=== PATIENT | female | born 1975 | race African-American/Black ===

== ENCOUNTER 2017-12-16 07:54 | Emergency (ER) | payer SELFPAY ==
[2017-12-16 08:42] LABS: Urine Blood 2+ (NEG); Urine Glucose NEGATIVE (NEG); Urine Protein 2+ (NEG)
[2017-12-16] MEDS ORDERED: ONDANSETRON 4 MG (ODT) TAB ONE (08:44)
[2017-12-16 08:53] LABS: Urine Bacteria >50 /HPF (<20); Urine RBC >50 /HPF (NONE SEEN)
[2017-12-16 08:54] LABS: Urine Culture Reflex Order REFLEXED
--- NOTE | 2017-12-16 09:18 | RAD REPORT ---
EXAM DESCRIPTION: RAD - Chest Pa And Lat (2 Views) - 12/16/2017 8:28 am CLINICAL HISTORY: Fever, productive cough COMPARISON: December 2014 TECHNIQUE: PA and lateral views of the chest were obtained. FINDINGS: The lungs are clear of a consolidation, mass or failure finding. Lower left lung field mar kings are fractionally increased over the comparison. This is relatively subtle but could be a very m inimal left lung base interstitial pneumonia. Heart size is normal and central vasculature is withi n normal limits. No pleural effusion or pneumothorax seen. No acute bony finding noted. No aortic abnormality. IMPRESSION: Questionable mild or early left lung base interstitial pneumonia.
--- NOTE | 2017-12-16 09:25 | EDPHYS ---
Physician Documentation [facility] Name: Kourtney Leblanc Age: 42 yrs Sex: Female : 1975 Arrival Date: 12/16/2017 Time: 07:56 Bed 17 Private MD: Karri Champagne ED Physician Kin Smalls HPI: 12/16 08:24 This 42 yrs old Black Female presents to ER via Ambulatory with complaints of Fever, gs Nausea, Abdominal Pain. 08:24 The patient reports fever, that was measured at 102 degrees Fahrenheit. Onset: The gs symptoms/episode began/occurred 2 day(s) ago. Modifying factors: Interventions used to treat fever include home remedies, did not take antipyretics today. Associated signs and symptoms: Pertinent positives: nausea. Severity of symptoms: At their worst the symptoms were moderate in the emergency department the symptoms are unchanged. The patient has experienced similar episodes in the past, a few times. The patient has not recently seen a physician. 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 - Social history:: The patient lives with spouse, Smoking status: Patient/guardian denies using tobacco. - Ebola Screening: : Patient negative for fever greater than or equal to 101.5 degrees Fahrenheit, and additional compatible Ebola Virus Disease symptoms. ROS: 08:24 ENT: Negative for sore throat. gs 08:24 Respiratory: Positive for cough. 08:24 : Positive for urinary symptoms. 08:24 All other systems are negative. Exam: 08:24 Head/Face: Normocephalic, atraumatic. Eyes: Pupils equal round and reactive to light, gs extra-ocular motions intact. Lids and lashes normal. Conjunctiva and sclera are non-icteric and not injected. Cornea within normal limits. Periorbital areas with no swelling, redness, or edema. ENT: Nares patent. No nasal discharge, no septal abnormalities noted. Tympanic membranes are normal and external auditory canals are clear. Oropharynx with no redness, swelling, or masses, exudates, or evidence of obstruction, uvula midline. Mucous membranes moist. Neck: Trachea midline, no thyromegaly or masses palpated, and no cervical lymphadenopathy. Supple, full range of motion without nuchal rigidity, or vertebral point tenderness. No Meningismus. Chest/axilla: Normal chest wall appearance and motion. Nontender with no deformity. No lesions are appreciated. Cardiovascular: Regular rate and rhythm with a normal S1 and S2. No gallops, murmurs, or rubs. Normal PMI, no JVD. No pulse deficits. Respiratory: Lungs have equal breath sounds bilaterally, clear to auscultation and percussion. No rales, rhonchi or wheezes noted. No increased work of breathing, no retractions or nasal flaring. Abdomen/GI: Soft, non-tender, with normal bowel sounds. No distension or tympany. No guarding or rebound. No evidence of tenderness throughout. Back: No spinal tenderness. No costovertebral tenderness. Full range of motion. Skin: Warm, dry with normal turgor. Normal color with no rashes, no lesions, and no evidence of cellulitis. MS/ Extremity: Pulses equal, no cyanosis. Neurovascular intact. Full, normal range of motion. Neuro: Awake and alert, GCS 15, oriented to person, place, time, and situation. Cranial nerves II-XII grossly intact. Motor strength 5/5 in all extremities. Sensory grossly intact. Cerebellar exam normal. Normal gait. 08:24 Constitutional: The patient appears alert, awake. Vital Signs: 08:02 BP 128 / 79; Pulse 96; Resp 20; Temp 98.6(TE); Pulse Ox 96% on R/A; Weight 94.8 kg; rb1 Height 5 ft. 3 in. (160.02 cm) (R); Pain 6/10; 09:00 BP 114 / 81; Pulse 87; Resp 17; Pulse Ox 96% on R/A; rb1 09:53 BP 121 / 80; Pulse 84; Resp 18; Pulse Ox 97% on R/A; rb1 08:02 Body Mass Index 37.02 (94.80 kg, 160.02 cm) rb1 MDM: 08:14 Patient medically screened. 08:24 Differential diagnosis: bacterial infection, pneumonia UTI. Data reviewed: vital signs, nurses notes. Response to treatment: the patient's symptoms have markedly improved after treatment, and as a result, I will discharge patient. 12/16 08:15 Order name: Urine Microscopic Only; Complete Time: 09:20 12/16 08:15 Order name: Flu; Complete Time: 09:20 12/16 08:15 Order name: XRAY Chest Pa And Lat (2 Views); Complete Time: 09:20 12/16 08:22 Order name: Urine Dipstick--Ancillary (enter results); Complete Time: 09:20 12/16 08:22 Order name: Urine --Ancillary (enter results); Complete Time: 09:20 12/16 08:56 Order name: Urine Culture EDMD Administered Medications: 08:40 Drug: Zofran 4 mg Route: PO; rb1 09:00 Follow up: Response: No adverse reaction; Nausea is decreased rb1 09:35 Drug: Rocephin (cefTRIAXone) 1 grams Route: IM; Site: right gluteus; rb1 09:50 Follow up: Response: No adverse reaction rb1 Disposition: 12/16/17 09:24 Discharged to Home. Impression: Fever presenting with conditions classified elsewhere, Urinary tract infection, site not specified. - Condition is Stable. - Discharge Instructions: Urinary Tract Infection, Adult, [id number]. - Prescriptions for Levaquin 750 mg Oral Tablet - take 1 tablet by ORAL route once daily for 5 days; 5 tablet. - Medication Reconciliation Form, Thank You Letter, Antibiotic Education, Prescription Opioid Use form. - Follow up: Private Physician; When: 2 - 3 days; Reason: Re-evaluation by your physician. Signatures: Dispatcher [employer] EDMD Amrita Huerta, RN RN rb1 Kin Smalls MD MD Corrections: (The following items were deleted from the chart) 09:53 09:24 12/16/2017 09:24 Discharged to Home. Impression: Fever presenting with conditions rb1 classified elsewhere; Urinary tract infection, site not specified. Condition is Stable. Forms are Medication Reconciliation Form, Thank You Letter, Antibiotic Education, Prescription Opioid Use. Follow up: Private Physician; When: 2 - 3 days; Reason: Re-evaluation by your physician.
--- NOTE | 2017-12-16 09:25 | ER ---
Nurse's Notes [facility] Name: Kourtney Leblanc Age: 42 yrs Sex: Female : 1975 Arrival Date: 12/16/2017 Time: 07:56 Bed 17 Private MD: Karri Champagne Diagnosis: Fever presenting with conditions classified elsewhere;Urinary tract infection, site not specified Presentation: 12/16 08:02 Presenting complaint: Patient states: Has been running fever for a couple days. She has rb1 a cough with yellow sputum. C/o suprapubic pain. Transition of care: patient was not received from another setting of care. Onset of symptoms was December 14, 2017. Risk Assessment: Do you want to hurt yourself or someone else? Patient reports no desire to harm self or others. Initial Sepsis Screen: Does the patient meet any 2 criteria? No. Patient's initial sepsis screen is negative. Does the patient have a suspected source of infection? No. Patient's initial sepsis screen is negative. Care prior to arrival: None. 08:02 Method Of Arrival: Ambulatory rb1 08:02 Acuity: RANDY 3 rb1 Triage Assessment: 08:02 General: Appears in no apparent distress. comfortable, Behavior is calm, cooperative. rb1 Pain: Complains of pain in suprapubic area. 08:02 General: Reports fever for 2-3 days. Pain: Pain currently is 6 out of 10 on a pain rb1 scale. EENT: Reports nasal congestion. Neuro: Level of Consciousness is awake, alert, obeys commands, Oriented to person, place, time, situation. Cardiovascular: Capillary refill < 3 seconds is brisk in bilateral fingers. Respiratory: Airway is patent Respiratory effort is even, unlabored, Respiratory pattern is regular, symmetrical. GI: Reports nausea, Patient currently denies diarrhea, vomiting. : Denies pain with urination. Derm: Skin is dry, Skin is normal, Skin temperature is warm. 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 - Social history:: The patient lives with spouse, Smoking status: Patient/guardian denies using tobacco. - Ebola Screening: : Patient negative for fever greater than or equal to 101.5 degrees Fahrenheit, and additional compatible Ebola Virus Disease symptoms. Screenin:02 Abuse screen: Denies threats or abuse. Nutritional screening: No deficits noted. rb1 Tuberculosis screening: No symptoms or risk factors identified. Fall Risk None identified. Assessment: 08:02 General: See triage assessment. rb1 09:00 Reassessment: Patient appears in no apparent distress at this time. Patient and/or rb1 family updated on plan of care and expected duration. Pain level reassessed. Patient is alert, oriented x 3, equal unlabored respirations, skin warm/dry/pink. 09:35 Reassessment: Discharge pending due to shot time for Rocephin. rb1 Vital Signs: 08:02 BP 128 / 79; Pulse 96; Resp 20; Temp 98.6(TE); Pulse Ox 96% on R/A; Weight 94.8 kg; rb1 Height 5 ft. 3 in. (160.02 cm) (R); Pain 6/10; 09:00 BP 114 / 81; Pulse 87; Resp 17; Pulse Ox 96% on R/A; rb1 09:53 BP 121 / 80; Pulse 84; Resp 18; Pulse Ox 97% on R/A; rb1 08:02 Body Mass Index 37.02 (94.80 kg, 160.02 cm) rb1 ED Course: 07:56 Patient arrived in ED. sb2 07:57 Karri Champagne MD is Private Physician. sb2 08:02 Arm band placed on right wrist. rb1 08:02 Patient has correct armband on for positive identification. Placed in gown. Bed in low rb1 position. Call light in reach. Side rails up X 1. Pulse ox on. NIBP on. 08:05 Amrita Huerta, ANAND is Primary Nurse. rb1 08:05 Kin Smalls MD is Attending Physician. gs 08:08 Triage completed. rb1 08:15 Urine collected: clean catch specimen, cloudy. dh3 08:20 Flu and/or RSV swab sent to lab. dh3 08:25 X-ray completed. Patient tolerated procedure well. Patient moved to radiology via jb2 wheelchair. Patient moved back from radiology. 08:27 XRAY Chest Pa And Lat (2 Views) In Process Unspecified. EDMS 09:53 No provider procedures requiring assistance completed. Patient did not have IV access rb1 during this emergency room visit. Administered Medications: 08:40 Drug: Zofran 4 mg Route: PO; rb1 09:00 Follow up: Response: No adverse reaction; Nausea is decreased rb1 09:35 Drug: Rocephin (cefTRIAXone) 1 grams Route: IM; Site: right gluteus; rb1 09:50 Follow up: Response: No adverse reaction rb1 Outcome: 09:24 Discharge ordered by . 09:53 Patient left the ED. rb1 09:53 Discharged to home ambulatory, with family. rb1 09:53 Condition: stable 09:53 Discharge instructions given to patient, Instructed on discharge instructions, follow up and referral plans. medication usage, Demonstrated understanding of instructions, follow-up care, medications, Prescriptions given X 1. Addendum: 12/19/2017 10:36 Addendum: Culture Results: Positive urine culture. No further action required. Bacteria i w sensitive to prescribed antibiotic. Signatures: Dispatcher [employer] EDMS Alejandro Ulloa jb2 Sena Hale RN RN iw Amrita Huerta RN RN rb1 Suzanne Cullen 3 Kin Smalls MD MD Scarlet Barnhart sb2 Corrections: (The following items were deleted from the chart) 12/16 09:38 08:02 GI: Patient currently denies diarrhea, nausea, vomiting, rb1 rb1
[2017-12-16] MEDS ORDERED: CEFTRIAXONE 1000 MG/VIAL ONE (09:34)
== END 2017-12-16 09:53 | disposition home or self-care (01) ==
LOC: ER 07:54
DX: N39.0 Urinary tract infection, site not specified (principal); E11.9 Type 2 diabetes mellitus without complications
CPT/HCPCS: 71046; 81003; 81015; 81025; 87077; 87086; 87088; 87186; 87804; 96372; 99284

== ENCOUNTER 2018-02-27 10:57 | Emergency (ER) | payer BC, SELFPAY ==
[2018-02-27] MEDS ORDERED: NA CHLORIDE 0.9% 500 ML ONE (11:30)
[2018-02-27] MEDS ORDERED: ONDANSETRON 4 MG/2 ML VIAL ONE (11:30)
[2018-02-27] MEDS ORDERED: MECLIZINE HCL 12.5 MG TAB ONE (11:30)
--- NOTE | 2018-02-27 11:55 | RAD REPORT ---
EXAM DESCRIPTION: CT - Head Brain Wo Cont - 02/27/2018 11:45 am CLINICAL HISTORY: Dizziness, weakness COMPARISON: None. TECHNIQUE: Axial 5 mm thick images of the head were obtained without IV contrast. All CT scans are performed using dose optimization technique as appropriate and may include automated exposure control or mA/KV adjustment according to patient size. FINDINGS: No intracranial hemorrhage, mass, edema or shift of mid-line structures. No acute infarcti on changes seen. No abnormal extra-axial fluid collections. Ventricles are normal. Physiologic calcif ications are present. Normal variant hyperostosis along the inner table of the frontal bone. Mastoid air cells and visualized portions of the paranasal sinuses are clear. No acute bony findings. IMPRESSION: Negative non-contrast CT head examination.
--- NOTE | 2018-02-27 11:56 | RAD REPORT ---
EXAM DESCRIPTION: RAD - Chest Single View - 02/27/2018 11:50 am CLINICAL HISTORY: Shortness of breath COMPARISON: December 16 TECHNIQUE: AP portable chest image was obtained 1138 hours . FINDINGS: No acute lung parenchymal process. Opacification at the left-side heart base is believed b e fat-pad and normal overlapping parenchyma. Heart and vasculature are normal. No measurable pleural effusion and no pneumothorax. No acute bony abnormality seen. No acute aortic findings suspected. IMPRESSION: No acute cardiopulmonary process. No significant change from comparison.
[2018-02-27 11:58] LABS: Urine Blood 2+ (NEG); Urine Glucose NEGATIVE (NEG); Urine Protein TRACE (NEG); Urine pH 6.5 (5.0-7.0)
[2018-02-27 12:01] LABS: Absolute Lymphocytes (CBC) 3.1 K/uL (0.7-4.9); Absolute Monocytes 0.8 K/uL (0.1-1.3); Absolute Neutrophil 5.6 K/uL (1.8-8.0); Basophils % 0.7 % (0-1.3); Eosinophils % 2.1 % (0-4.4); Hematocrit 35.4 % (36.0-45.0); Lymphocytes % 31.8 % (15.3-44.8); MCH 24.8 pg (27.0-35.0); MCV 77.1 fL (80-100); MPV 8.9 fL (7.6-11.3); Monocytes % 7.8 % (3.3-12.3); Protime INR 1.13; RBC Red Blood Cell Count 4.59 M/uL (3.86-4.86)
[2018-02-27 12:10] LABS: ALT/SGPT 29 U/L (12-78); AST/SGOT 9 U/L (15-37); Albumin 3.2 g/dL (3.4-5.0); Alkaline Phosphatase 115 U/L (45-117); BUN Blood Urea Nitrogen 14 mg/dL (7-18); Bicarbonate 29 mmol/L (21-32); Bilirubin Direct < 0.1 mg/dL (0-0.2); Bilirubin Total 0.2 mg/dL (0.2-1.0); Glucose Level 133 mg/dL (74-106); Magnesium 2.1 mg/dL (1.8-2.4); NT PRO-BNP 58 pg/mL (<125); Potassium 4.1 mmol/L (3.5-5.1); Protein, Total 8.2 g/dL (6.4-8.2); Sodium Level 140 mmol/L (136-145); Troponin (Emerg Dept Use Only) < 0.02 ng/mL (0.0-0.045)
[2018-02-27 12:21] LABS: Urine RBC 20-50 /HPF (NONE SEEN)
[2018-02-27 12:22] LABS: Urine Bacteria LOADED /HPF (<20)
[2018-02-27 12:23] LABS: Urine Culture Reflex Order NOT NEEDED
--- NOTE | 2018-02-27 14:02 | EDPHYS ---
Physician Documentation [facility] Name: Kourtney Leblanc Age: 42 yrs Sex: Female : 1975 Arrival Date: 02/27/2018 Time: 10:58 Bed 2 Private MD: Karri Champagne ED Physician Kin Smalls HPI: 02/27 11:24 This 42 yrs old Black Female presents to ER via Ambulatory with complaints of Dizziness.jmm 11:24 The patient presents with sense of spinning. Onset: The symptoms/episode began/occurred jmm acutely, 2 day(s) ago. Associated signs and symptoms: Pertinent positives: Pertinent negatives: ataxia, blurred vision, confusion, focal weakness. This is a 42 year old female with a history of DM that presents to the ED with dizziness beginning this past Wednesday upon awakening. Patient described the dizziness with the sensation of the room spinning. Patient states last week she had a flu like illness. Patient denies focal weakness. . Historical: - Allergies: 11:01 No Known Allergies; sv - PMHx: 11: Depression; Diabetes - NIDDM; sv - PSHx: 11:01 ; right ovarian cyst; Fibroids removed from uterus; sv - Immunization history:: Flu vaccine is not up to date. - Social history:: Smoking status: Patient/guardian denies using tobacco. - Ebola Screening: : No symptoms or risks identified at this time. ROS: 11:24 Constitutional: Negative for fever, chills, and weight loss, Cardiovascular: Negative jm for chest pain, palpitations, and edema, Respiratory: Negative for shortness of breath, cough, wheezing, and pleuritic chest pain, Abdomen/GI: Negative for abdominal pain, nausea, vomiting, diarrhea, and constipation. 11:24 Neuro: Positive for dizziness. 11:24 All other systems are negative. Exam: 11:24 Head/Face: atraumatic. jmm 11:24 ENT: Moist Mucus Membranes Neck: Trachea midline, Supple Chest/axilla: Normal chest wall appearance and motion. Cardiovascular: Regular rate and rhythm. No edema appreciated Respiratory: Normal respirations, no respiratory distress appreciated Abdomen/GI: Non distended, soft Back: Normal ROM 11:24 Constitutional: The patient appears in no acute distress, alert, awake. 11:24 Eyes: Nystagmus: gaze to the right. 11:24 Neuro: Orientation: is normal, Mentation: is normal, Memory: is normal, Cerebellar function: Romberg testing normal finger to nose testing, heel to de luna testing is normal, Motor: is normal. 11:24 Psych: Behavior/mood is pleasant, cooperative. Vital Signs: 11:01 BP 110 / 75; Pulse 69; Resp 16; Temp 97.1; Pulse Ox 99% ; Weight 94.8 kg; Height 5 ft. sv 3 in. (160.02 cm); Pain 5/10; 13:55 BP 127 / 74; Pulse 71; Resp 16; Temp 98.1; Pulse Ox 98% on R/A; la1 11:01 Body Mass Index 37.02 (94.80 kg, 160.02 cm) sv MDM: 11:13 Patient medically screened. [facility] 14:00 Data reviewed: vital signs, nurses notes, lab test result(s), radiologic studies, CT [facility] scan. Counseling: I had a detailed discussion with the patient and/or guardian regarding: the historical points, exam findings, and any diagnostic results supporting the discharge/admit diagnosis, lab results, radiology results, the need for outpatient follow up, to return to the emergency department if symptoms worsen or persist or if there are any questions or concerns that arise at home. 14:00 ED course: Patient has terminating horizontal nystagmus. Cerebellar exam is normal. [facility] Patient is able to ambulate without difficulty in the ED. CT negative. Symptoms appear most likely peripheral. Patient states having decreased dizziness. . 14:00 ED course: Patient's complaints of lower abdominal pain has been chronic for months. UA [facility] shows signs of UTI. No leukocytosis. Lower abdominal exam localizes to the suprapubic region. I do not currently suspect appendicitis. Patient given early appendicitis return precautions. Patient understood and agrees with the plan of care. . 02/27 11:19 Order name: Basic Metabolic Panel; Complete Time: 12:22 [facility] 02/27 11:19 Order name: CBC with Diff; Complete Time: 12:08 [facility] 02/27 11:19 Order name: LFT's; Complete Time: 12:22 [facility] 02/27 11:19 Order name: Magnesium; Complete Time: 12:22 [facility] 02/27 11:19 Order name: NT PRO-BNP; Complete Time: 12:22 [facility] 02/27 11:19 Order name: PT-INR; Complete Time: 12:08 [facility] 02/27 11:19 Order name: Troponin (emerg Dept Use Only); Complete Time: 12:22 [facility] 02/27 11:19 Order name: XRAY Chest (1 view); Complete Time: 12:01 [facility] 02/27 11:20 Order name: CT Head Brain wo Cont; Complete Time: 12:01 [facility] 02/27 11:41 Order name: Urine Culture [facility] 02/27 11:41 Order name: Urine Microscopic Only; Complete Time: 12:26 [facility] 02/27 11:43 Order name: Urine Dipstick--Ancillary (enter results); Complete Time: 12: 02/27 11:43 Order name: Urine --Ancillary (enter results); Complete Time: 12: 02/27 11:19 Order name: EKG; Complete Time: 11:20 [facility] 02/27 11:19 Order name: Cardiac monitoring; Complete Time: 11:34 [facility] 02/27 11:19 Order name: EKG - Nurse/Tech; Complete Time: 11:34 [facility] 02/27 11:19 Order name: IV Saline Lock; Complete Time: 11:34 [facility] 02/27 11:19 Order name: Labs collected and sent; Complete Time: 11:34 [facility] 02/27 11:19 Order name: O2 Per Protocol; Complete Time: 11:34 [facility] 02/27 11:19 Order name: O2 Sat Monitoring; Complete Time: 11:34 [facility] Administered Medications: 11:34 Drug: Meclizine 50 mg Route: PO; la1 12:47 Follow up: Response: No adverse reaction la1 11:34 Drug: Zofran 4 mg Route: IVP; Site: right antecubital; la1 12:47 Follow up: Response: No adverse reaction la1 11:34 Drug: NS 0.9% 500 ml Route: IV; Rate: bolus; Site: right antecubital; la1 12:47 Follow up: IV Status: Completed infusion la1 Disposition: 02/27/18 14:02 Discharged to Home. Impression: Vertigo. - Condition is Stable. - Discharge Instructions: Urinary Tract Infection, Adult, Vertigo. - Prescriptions for Cephalexin 500 mg Oral Capsule - take 1 capsule by ORAL route every 12 hours for 10 days; 20 capsule. Valium 2 mg Oral Tablet - take 1 tablet by ORAL route every 8 hours As needed; 20 tablet. - Medication Reconciliation Form, Thank You Letter, Antibiotic Education, Prescription Opioid Use form. - Follow up: Karri Champagne MD; When: 2 - 3 days; Reason: Recheck today's complaints, Continuance of care, Re-evaluation by your physician. Follow up: Magali Timmons MD; When: 2 - 3 days; Reason: Recheck today's complaints, Continuance of care, Re-evaluation by your physician. Follow up: Ann uCllen MD; When: 2 - 3 days; Reason: Recheck today's complaints, Continuance of care, Re-evaluation by your physician. Addendum: 03/07/2018 11:44 Co-signature as Attending Physician, Kin Smalls MD. g s Signatures: Dispatcher [employer] EDMS Ann Blount RN RN sv Mickail, Joel, PA PA jm Edson Pena RN RN la1 Starr, Gregory, MD MD Corrections: (The following items were deleted from the chart) 02/27 14:17 14:02 02/27/2018 14:02 Discharged to Home. Impression: Vertigo. Condition is Stable. la1 Forms are Medication Reconciliation Form, Thank You Letter, Antibiotic Education, Prescription Opioid Use. Follow up: Karri Champagne; When: 2 - 3 days; Reason: Recheck today's complaints, Continuance of care, Re-evaluation by your physician. Follow up: Magali Timmons; When: 2 - 3 days; Reason: Recheck today's complaints, Continuance of care, Re-evaluation by your physician. Follow up: Ann Cullen; When: 2 - 3 days; Reason: Recheck today's complaints, Continuance of care, Re-evaluation by your physician. juan luis
--- NOTE | 2018-02-27 14:02 | ER ---
Nurse's Notes [facility] Name: Kourtney Leblanc Age: 42 yrs Sex: Female : 1975 Arrival Date: 02/27/2018 Time: 10:58 Bed 2 Private MD: Karri Champagne Diagnosis: Vertigo Presentation: 02/27 11:00 Presenting complaint: Patient states: dizziness x 3 days. Pt reports she had her sv menstrual cycle twice this month and has had some RLQ pain intermittently. Transition of care: patient was not received from another setting of care. Onset of symptoms was February 24, 2018. Care prior to arrival: None. 11:00 Method Of Arrival: Ambulatory sv 11:00 Acuity: RANDY 3 sv 12:46 Risk Assessment: Do you want to hurt yourself or someone else? Patient reports no la1 desire to harm self or others. Initial Sepsis Screen: Does the patient meet any 2 criteria? No. Patient's initial sepsis screen is negative. Does the patient have a suspected source of infection? No. Patient's initial sepsis screen is negative. Triage Assessment: 11:02 General: Appears in no apparent distress. uncomfortable, Behavior is calm, cooperative, sv appropriate for age. Pain: Complains of pain in right lower quadrant Pain currently is 5 out of 10 on a pain scale. Neuro: Level of Consciousness is awake, alert, obeys commands, Oriented to person, place, time, situation, Moves all extremities. Full function Gait is steady, Speech is normal, Reports dizziness. Respiratory: Respiratory effort is even, unlabored, Respiratory pattern is regular, symmetrical. Historical: - Allergies: 11:01 No Known Allergies; sv - PMHx: 11:01 Depression; Diabetes - NIDDM; sv - PSHx: 11:01 ; right ovarian cyst; Fibroids removed from uterus; sv - Immunization history:: Flu vaccine is not up to date. - Social history:: Smoking status: Patient/guardian denies using tobacco. - Ebola Screening: : No symptoms or risks identified at this time. Screenin:34 Abuse screen: Denies threats or abuse. Nutritional screening: No deficits noted. la1 Tuberculosis screening: No symptoms or risk factors identified. Fall Risk None identified. Assessment: 11:33 General: Appears in no apparent distress. Behavior is calm, cooperative. Pain: la1 Complains of pain in right lower quadrant. Neuro: Level of Consciousness is awake, alert, obeys commands, Oriented to person, place, time, situation, Moves all extremities. Full function Gait is steady, Speech is normal, Facial symmetry appears normal, Pupils are PERRLA. Cardiovascular: Capillary refill < 3 seconds Patient's skin is warm and dry. Respiratory: Airway is patent Respiratory effort is even, unlabored, Respiratory pattern is regular, symmetrical, Breath sounds are clear bilaterally. GI: Patient currently denies diarrhea, nausea, vomiting. : No signs and/or symptoms were reported regarding the genitourinary system. 12:46 Reassessment: Patient appears in no apparent distress at this time. No changes from la1 previously documented assessment. Patient and/or family updated on plan of care and expected duration. Pain level reassessed. 13:45 Reassessment: Patient appears in no apparent distress at this time. No changes from la1 previously documented assessment. Patient and/or family updated on plan of care and expected duration. Pain level reassessed. Patient is alert, oriented x 3, equal unlabored respirations, skin warm/dry/pink. Vital Signs: 11:01 BP 110 / 75; Pulse 69; Resp 16; Temp 97.1; Pulse Ox 99% ; Weight 94.8 kg; Height 5 ft. sv 3 in. (160.02 cm); Pain 5/10; 13:55 BP 127 / 74; Pulse 71; Resp 16; Temp 98.1; Pulse Ox 98% on R/A; la1 11:01 Body Mass Index 37.02 (94.80 kg, 160.02 cm) sv ED Course: 10:58 Patient arrived in ED. mr 10:58 Karri Champagne MD is Private Physician. mr 11:00 Triage completed. sv 11:02 Arm band placed on. sv 11:05 Enrike Hurt, ANAND is Primary Nurse. bp 11:07 Catracho Estrada PA is PHCP. jm 11:07 Kin Smalls MD is Attending Physician. [facility] 11:34 Call light in reach. Side rails up X 1. la1 11:34 No provider procedures requiring assistance completed. Inserted saline lock: 22 gauge la1 in right antecubital area, using aseptic technique. Blood collected. 11:43 CT completed. Patient moved to CT via wheelchair. Patient moved back from CT. cw1 11:45 CT Head Brain wo Cont In Process Unspecified. EDMS 11:50 XRAY Chest (1 view) In Process Unspecified. EDMS 11:50 X-ray completed. Patient tolerated procedure well. Patient moved back from radiology. ag1 14:01 Karri Champagne MD is Referral Physician. jm 14:01 Magali Timmons MD is Referral Physician. jm 14:01 Ann Cullen MD is Referral Physician. jmm 14:16 IV discontinued, intact, bleeding controlled, No redness/swelling at site. Pressure la1 dressing applied. Administered Medications: 11:34 Drug: Meclizine 50 mg Route: PO; la1 12:47 Follow up: Response: No adverse reaction la1 11:34 Drug: Zofran 4 mg Route: IVP; Site: right antecubital; la1 12:47 Follow up: Response: No adverse reaction la1 11:34 Drug: NS 0.9% 500 ml Route: IV; Rate: bolus; Site: right antecubital; la1 12:47 Follow up: IV Status: Completed infusion la1 Outcome: 14:02 Discharge ordered by MD. jmm 14:16 Discharged to home ambulatory. la1 14:16 Condition: stable 14:16 Discharge instructions given to patient, Instructed on discharge instructions, follow up and referral plans. medication usage, Demonstrated understanding of instructions, follow-up care, medications, Prescriptions given X 2. 14:17 Patient left the ED. la1 Addendum: 03/03/2018 07:55 Addendum: Culture Results: Positive urine culture. No further action required. Bacteria i w sensitive to prescribed antibiotic. Signatures: Dispatcher [employer] EDMS Ann Blount, RN Catracho Cristina PA PA Phyllis Bernstein mr Sena Hale, RN Silvia Reynolds [facility] Edson Pena RN RN la1 [place], Ashley [facility] Enrike Hurt RN RN bp Corrections: (The following items were deleted from the chart) 02/27 11:01 11:00 Presenting complaint: Patient states: dizziness x 3 days. sv sv
--- NOTE | 2018-02-28 07:04 | EKG ---
Test Date: 2018-02-27 Test Time: 11:13:38 Employment Representative: KAILEY MEASUREMENT RESULTS: Intervals: Rate: 64 LA: 150 QRSD: 80 QT: 416 QTc: 429 [place]: P: 43 LA: 150 QRS: 20 T: 25 INTERPRETIVE STATEMENTS: Normal sinus rhythm Normal ECG Compared to ECG 12/06/2014 13:21:22 Sinus bradycardia no longer present Sinus arrhythmia no longer present Electronically Signed On 02-28-18 07:04:13 CDT by Rito Jones
== END 2018-02-27 14:17 | disposition home or self-care (01) ==
LOC: ER 10:57
DX: R42 Dizziness and giddiness (principal); N39.0 Urinary tract infection, site not specified
CPT/HCPCS: 36415; 70450; 71045; 80048; 80076; 81003; 81015; 81025; 83735; 83880; 84484; 85025; 85610; 87077; 87086; 87088; 87186; 93005; 96361; 96374; 99284; J2405

== ENCOUNTER → 2023-07-14 | Emergency (ER) | payer BC, SELFPAY ==
[~2023-07-14] MED LIST: MAGNESIUM SULFATE 1 gm IVPB 1 GM/100 ML BAG IV ONE; MECLIZINE HCL 12.5 MG TAB ONE; NA CHLORIDE 0.9% 500 ML ONE
--- OUTSIDE RECORDS SUMMARY | 2023-07-14 16:12 | XMS REPORT | Continuity of Care Document ---
Author Name Unknown Address [address] [facility] [address] [place] [address] [facility] thconnect Address [address] [facility] 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 Role Phone Wesley STACK, Brittany Ramachandran Primary Care Physician [phone] MARTINA LADD Attending Clinician Unavailable [place] Attending Clinician Unavailsarika dozier [email or web address]_S Attending Clinician UnavailANA Sigala Attending Clinician UnavailBrittany Melendrez MD Attending Clinician + [phone] Ana Garcia MD Attending Clinician + [phone] Doctor Unassigned, [place] Attending Clinician U navailable Lab, Ang - Db Attending Clinician Unavailable BRITTANY DAVIS Attending Clinician UnavailIVAN Burleson Attending Clinician Unavail able JERRICA GARCIA Attending Clinician Unavailable 2, [facility] Attending Clinician Unavailable Michelle Zavala Attending Clinician [phone] MICHELLE PICHARDO Attending Clinician UnavailZac Barrera Attending Clinician [phone] Jerirca Garcia MD Attending Clinician [phone] ZAC MOON Attending Clinician [facility]ika [facility] Clinicia n KAYLEE VIDALES Attending Clinician Unavailable SHARONDA BARAJAS Attending Clinician Unavailable Provider, [facility] Attending Clinician Un available Sharonda Mariscal Attending Clinician [phone] Pob, [facility] Main Attending Clinician Jennifer dozier Lab Adc Fam Pob I Attending Clinician UnavailLuciana Marques Attending Clinician [phone] Francisco Javier Gonzalez MD Attending Clinician +- [phone] FRANCISCO JAVIER GONZALEZ Attending Clinician MARTINA Stovall Admitting Clinician Unavailable [place] Admitting Clinician Unavailsarika dozier [email or web address]_S Admitting Clinician Unavaila ble Payers Payer Name Policy Type Policy Number Effective Date Expirati on Date Source HIM [facility] BLUE ADVANTAGE O [id number] 2020 00:00:00 [employer] [id number] 2020 00:00:00 Problems Condition Name Condition Details Condition Category Status Onset Date Resolution Date Last Treatment Date Treating Clinician Comments Source Mixed hyperlipid emia Mixed hyperlipid emia Disease Active 2020-05 00:00: 00 [facility] Menorrhagi a with irregular cycle Menorrhagi a with irregular cycle Disease Active 09-19 00:00: 00 [facility] Intramural , submucous, and subserous leiomyoma of uterus Intramural , submucous, and subserous leiomyoma of uterus Disease Active 09-19 00:00: 00 [facility] Dysmenorrh ea Dysmenorrh ea Disease Active 09-19 00:00: 00 [facility] Gastroesop hageal reflux disease without esophagiti s Gastroesop hageal reflux disease without esophagiti s Disease Active 09-17 00:00: 00 Overview: Formattin g of this note might be different from the original. Added automatic ally from request for surgery [id number] [facility] Dysphagia, pharyngoes ophageal phase Dysphagia, pharyngoes ophageal phase Disease Active 09-17 00:00: 00 Overview: Formattin g of this note might be different from the original. Added automatic ally from request for surgery [id number] [facility] Obesity (BMI 30-39.9) Obesity (BMI 30-39.9) Disease Active 4-16 00:00: 00 [facility] Iron deficiency Iron deficiency Disease Active 3-27 00:00: 00 [facility] Mixed connective tissue disease Mixed connective tissue disease Disease Active 3- 00:00: 00 [facility] Diabetes mellitus, type 2 Diabetes mellitus, type 2 Disease Active 2019-05 00:00: 00 Overview: Formattin g of this note might be different from the original. Diagnosed in 2008 [facility] Seasonal allergic rhinitis Seasonal allergic rhinitis Disease Active 2019-05 00:00: 00 [facility] Kidney stones Kidney stones Disease Active 2019-05 00:00: 00 [facility] Allergies, Adverse Reactions, Alerts Allergy Name Allergy Type Status Severity Reaction(s) Onset Date Inactive Date Treating Clinician Comments Source NO KNOWN ALLERGIE S Drug Class Active [facility] Social History Social Habit Start Date Stop Date Quantity Comments Source Sexual orientation U [facility] Exposure to SARS-CoV-2 (event) 2021-01-28 00:00:00 2021-02-27 13:32:00 Yes [facility] History of Social function 2020-07-01 00:00:00 2020-07-01 00:00:00 [facility] History SDOH Alcohol Frequency 2020-04-01 00:00:00 2020-04-01 00:00:00 99 [facility] History SDOH Alcohol Std Drinks 2020-04-01 00:00:00 2020-04-01 00:00:00 99 [facility] History SDOH Alcohol Binge 2020-04-01 00:00:00 2020-04-01 00:00:00 99 [facility] Alcohol intake 2020-04-01 00:00:00 2020-04-01 00:00:00 Current drinker of alcohol (finding) [facility] Alcohol Comment 2020-04-01 00:00:00 2020-04-01 00:00:00 rare [facility] Tobacco use and exposure 2018-09-09 00:00:2018-09-09 00:00:00 Smokeless tobacco non-user [facility] Sex Assigned At 1975 00:00:00 1975 00:00:00 [facility] Smoking Status Start Date Stop Date Source Never smoked tobacco [facility] Medications Ordered Medication Name Filled Medication Name Start Date Stop Date Current Medication? Ordering Clinician Indication Dosage Frequency Signature (SIG) Comments Components Source semaglutide (OZEMPIC) 0.25 mg or 0.5 mg(2 mg/1.5 mL) [facility] 2020-05 00:00: 00 Yes [id number] .5mg inject 0.5 mg under the skin weekly. [facility] semaglutide (OZEMPIC) 0.25 mg or 0.5 mg(2 mg/1.5 mL) [facility] 2020-05 00:00: 00 Yes [id number] .5mg inject 0.5 mg under the skin weekly. [facility] semaglutide (OZEMPIC) 0.25 mg or 0.5 mg(2 mg/1.5 mL) [facility] 2020-05 00:00: 00 Yes [id number] .5mg inject 0.5 mg under the skin weekly. [facility] metFORMIN 1,000 mg tablet 2020-05 00:00: 00 Yes [id number] 1000mg Take 1 tablet by mouth 2 (two) times daily with meals. [facility] rosuvastati n 10 mg tablet 2020-05 00:00: 00 Yes [id number] 10mg Take 1 tablet by mouth every evening. [facility] metFORMIN 1,000 mg tablet 2020-05 00:00: 00 Yes [id number] 1000mg Take 1 tablet by mouth 2 (two) times daily with meals. [facility] rosuvastati n 10 mg tablet 2020-05 00:00: 00 Yes [id number] 10mg Take 1 tablet by mouth every evening. [facility] metFORMIN 1,000 mg tablet 2020-05 00:00: 00 Yes [id number] 1000mg Take 1 tablet by mouth 2 (two) times daily with meals. [facility] rosuvastati n 10 mg tablet 2020-05 00:00: 00 Yes [id number] 10mg Take 1 tablet by mouth every evening. [facility] semaglutide (OZEMPIC) 0.25 mg or 0.5 mg(2 mg/1.5 mL) Ij 2020-05 00:00: 00 03-22 05:59 :00 No [id number] .25mg inject 0.25 mg under the skin weekly for 30 days. THEN INCREASE TO 0.5MG WEEKLY THEREAFTER (SEPARATE RX SENT) [facility] semaglutide (OZEMPIC) 0.25 mg or 0.5 mg(2 mg/1.5 mL) [facility] 2020-05 00:00: 00 03-22 05:59 :00 No [id number] .25mg inject 0.25 mg under the skin weekly for 30 days. THEN INCREASE TO 0.5MG WEEKLY THEREAFTER (SEPARATE RX SENT) [facility] cetirizine HCl (ZYRTEC ORAL) 2020-05 0 15:59: 11 Yes Take by mouth. [facility] cetirizine HCl (ZYRTEC ORAL) 2020-05 0 15:59: 11 Yes Take by mouth. [facility] cetirizine HCl (ZYRTEC ORAL) 2020-05 0 15:59: 11 Yes Take by mouth. [facility] cetirizine HCl (ZYRTEC ORAL) 2020-05 0 15:59: 11 Yes Take by mouth. [facility] diphenhydrA MINE (BENADRYL) 25 mg capsule 2020-05 15:58: 56 02-13 00:00 :00 No 25mg Take 25 mg by mouth at bedtime. [facility] diphenhydrA MINE (BENADRYL) 25 mg capsule 2020-05 15:58: 56 02-13 00:00 :00 No 25mg Take 25 mg by mouth at bedtime. [facility] diphenhydrA MINE (BENADRYL) 25 mg capsule 2020-05 014 15:58: 56 02-13 00:00 :00 No 25mg Take 25 mg by mouth at bedtime. [facility] medroxyPROG ESTERone (PROVERA) 10 mg tablet 20 00:00: 00 02-13 00:00 :00 No [id number] 10mg Take 1 tablet by mouth daily. [facility] pantoprazol e 40 mg EC tablet 09-05 00:00: 00 02-13 00:00 :00 No [id number] 40mg Take 1 tablet by mouth daily. [facility] pantoprazol e 40 mg EC tablet 09-05 00:00: 00 02-13 00:00 :00 No [id number] 40mg Take 1 tablet by mouth daily. [facility] famotidine (PEPCID) 40 mg tablet 09-05 00:00: 00 10-06 04:59 :00 No [id number] 40mg Take 1 tablet by mouth at bedtime for 30 days. [facility] famotidine (PEPCID) 40 mg tablet 09-05 00:00: 00 10-06 04:59 :00 No [id number] 40mg Take 1 tablet by mouth at bedtime for 30 days. [facility] MULTIVITAMI N ORAL 08-16 15:26: 44 Yes Take by mouth. Takes 2 tablets daily [facility] MULTIVITAMI N ORAL 16 15:26: 44 Yes Take by mouth. Takes 2 tablets daily [facility] MULTIVITAMI N ORAL 0 16 15:26: 44 Yes Take by mouth. Takes 2 tablets daily [facility] MULTIVITAMI N ORAL 16 15:26: 44 Yes Take by mouth. Takes 2 tablets daily [facility] MULTIVITAMI N ORAL 16 15:26: 44 Yes Take by mouth. Takes 2 tablets daily [facility] MULTIVITAMI N ORAL 2021-0 4-16 15:26: 44 Yes Take by mouth. Takes 2 tablets daily [facility] MULTIVITAMI N ORAL 08-16 15:26: 44 Yes Take by mouth. Takes 2 tablets daily [facility] MULTIVITAMI N ORAL 08-16 15:26: 44 Yes Take by mouth. Takes 2 tablets daily [facility] miSOPROStoL 200 mcg tablet 08-16 00:00: 00 02-13 00:00 :00 No TAKE 1 TABLET BY MOUTH DIRECTED ON THE DAY OF SCHEDULED PROCEDURE [facility] miSOPROStoL 200 mcg tablet 08-16 00:00: 00 02-13 00:00 :00 No TAKE 1 TABLET BY MOUTH DIRECTED ON THE DAY OF SCHEDULED PROCEDURE [facility] cyanocobala min, vitamin B-12, (VITAMIN B-12 ORAL) 07-26 09:12: 19 Yes Take by mouth. [facility] cyanocobala min, vitamin B-12, (VITAMIN B-12 ORAL) 07-26 09:12: 19 Yes Take by mouth. [facility] cyanocobala min, vitamin B-12, (VITAMIN B-12 ORAL) 07-26 09:12: 19 Yes Take by mouth. [facility] cyanocobala min, vitamin B-12, (VITAMIN B-12 ORAL) 07-26 09:12: 19 Yes Take by mouth. [facility] cyanocobala min, vitamin B-12, (VITAMIN B-12 ORAL) 07-26 09:12: 19 Yes Take by mouth. [facility] cyanocobala min, vitamin B-12, (VITAMIN B-12 ORAL) 07-26 09:12: 19 Yes Take by mouth. [facility] cyanocobala min, vitamin B-12, (VITAMIN B-12 ORAL) 07-26 09:12: 19 Yes Take by mouth. [facility] cephALEXin (KEFLEX) 500 mg capsule 07-26 00:00: 00 08-03 04:59 :00 No [id number] 500mg Take 1 capsule by mouth 4 (four) times daily for 7 days. [facility] Cholecalcif efra, Vitamin D3, (VITAMIN D3) 50 mcg (2,000 unit) capsule 07-01 00:00: 00 Yes [id number] 4000U Take 2 capsules by mouth daily. [facility] Cholecalcif efra, Vitamin D3, (VITAMIN D3) 50 mcg (2,000 unit) capsule 07-01 00:00: 00 Yes [id number] 4000U Take 2 capsules by mouth daily. [facility] Cholecalcif efra, Vitamin D3, (VITAMIN D3) 50 mcg (2,000 unit) capsule 07-01 00:00: 00 Yes [id number] 4000U Take 2 capsules by mouth daily. [facility] Cholecalcif efra, Vitamin D3, (VITAMIN D3) 50 mcg (2,000 unit) capsule 07-01 00:00: 00 Yes [id number] 4000U Take 2 capsules by mouth daily. [facility] Cholecalcif efra, Vitamin D3, (VITAMIN D3) 50 mcg (2,000 unit) capsule 07-01 00:00: 00 Yes [id number] 4000U Take 2 capsules by mouth daily. [facility] Cholecalcif efra, Vitamin D3, (VITAMIN D3) 50 mcg (2,000 unit) capsule 07-01 00:00: 00 Yes [id number] 4000U Take 2 capsules by mouth daily. [facility] Cholecalcif efra, Vitamin D3, (VITAMIN D3) 50 mcg (2,000 unit) capsule 07-01 00:00: 00 Yes [id number] 4000U Take 2 capsules by mouth daily. [facility] lisinopriL 2.5 mg tablet 07-01 00:00: 00 02-13 00:00 :00 No [id number] 2.5mg Take 1 tablet by mouth at bedtime. [facility] rosuvastati n 10 mg tablet 07-01 00:00: 02-13 00:00 :00 No [id number] 10mg Take 1 tablet by mouth at bedtime. [facility] lisinopriL 2.5 mg tablet 3 00:00: 00 02-13 00:00 :00 No [id number] 2.5mg Take 1 tablet by mouth at bedtime. [facility] rosuvastati n 10 mg tablet 07-01 00:00: 00 02-13 00:00 :00 No [id number] 10mg Take 1 tablet by mouth at bedtime. [facility] lisinopriL 2.5 mg tablet 07-01 00:00: 00 02-13 00:00 :00 No [id number] 2.5mg Take 1 tablet by mouth at bedtime. [facility] rosuvastati n 10 mg tablet 07-01 00:00: 00 02-13 00:00 :00 No [id number] 10mg Take 1 tablet by mouth at bedtime. [facility] ferrous sulfate (IRON) 325 mg (65 mg iron) tablet 2019-05 14:56: 56 Yes 325mg Take 325 mg by mouth daily. [facility] ferrous sulfate (IRON) 325 mg (65 mg iron) tablet 2019-05 14:56: 56 Yes 325mg Take 325 mg by mouth daily. [facility] ferrous sulfate (IRON) 325 mg (65 mg iron) tablet 2019-05 14:56: 56 Yes 325mg Take 325 mg by mouth daily. [facility] ferrous sulfate (IRON) 325 mg (65 mg iron) tablet 2019-05 14:56: 56 Yes 325mg Take 325 mg by mouth daily. [facility] ferrous sulfate (IRON) 325 mg (65 mg iron) tablet 2019-05 14:56: 56 Yes 325mg Take 325 mg by mouth daily. [facility] ferrous sulfate (IRON) 325 mg (65 mg iron) tablet 2019-05 14:56: 56 Yes 325mg Take 325 mg by mouth daily. [facility] ferrous sulfate (IRON) 325 mg (65 mg iron) tablet 2019-05 14:56: 56 Yes 325mg Take 325 mg by mouth daily. [facility] ferrous sulfate (IRON) 325 mg (65 mg iron) tablet 2019-05 14:56: 56 Yes 325mg Take 325 mg by mouth daily. [facility] metFORMIN 500 mg tablet 2019-05 00:00: 00 02-03 00:00 :00 No [id number] 500mg Take 1 tablet by mouth 2 (two) times daily with meals. [facility] metFORMIN 500 mg tablet 2019-05 00:00: 00 02-03 00:00 :00 No [id number] 500mg Take 1 tablet by mouth 2 (two) times daily with meals. [facility] metFORMIN 500 mg tablet 2019-05 00:00: 00 02-03 00:00 :00 No [id number] 500mg Take 1 tablet by mouth 2 (two) times daily with meals. [facility] Immunizations Ordered Immunization Name Filled Immunization Name Date Status Comments Source Influenza Virus Vaccine Quad IM, Preserv and ABX Free 6 MO-64 YRS 2021-02-13 00:00:00 Completed [facility] Pneumococcal Polysaccharide, PPSV23 (PNEUMOVAX) 2021-02-13 00:00:00 Completed [facility] Influenza Virus Vaccine Quad IM, Preserv and ABX Free 6 MO-64 YRS 2021-02-13 00:00:00 Completed [facility] Pneumococcal Polysaccharide, PPSV23 (PNEUMOVAX) 2021-02-13 00:00:00 Completed [facility] SARS-COV-2 COVID-19 MODERNA VACCINE 2020-08-05 00:00:00 Completed [facility] SARS-COV-2 COVID-19 MODERNA VACCINE 2020-08-05 00:00:00 Completed [facility] SARS-COV-2 COVID-19 MODERNA VACCINE 2020-07-07 00:00:00 Completed [facility] SARS-COV-2 COVID-19 MODERNA VACCINE 2020-07-07 00:00:00 Completed [facility] Influenza Virus Vaccine Quad .5 mL IM 6+ MO 2020-04-01 00:00:00 Completed [facility] TDAP 2020-04-01 00:00:00 Completed [facility] Influenza Virus Vaccine Quad .5 mL IM 6+ MO 2020-04-01 00:00:00 Completed [facility] TDAP 2020-04-01 00:00:00 Completed [facility] Influenza Virus Vaccine Quad .5 mL IM 6+ MO (FLUZONE/FLULAVAL/F LUARIX) Unknown Completed [facility] TDAP Unknown Completed [facility] SARS-COV-2 COVID-19 MODERNA 12+ YRS VACCINE Unknown Completed [facility] SARS-COV-2 COVID-19 MODERNA 12+ YRS VACCINE Unknown Completed [facility] Influenza Virus Vaccine Quad IM, Preserv and ABX Free 6 MO-64 YRS (FLUCELVAX) Unknown Completed [facility] Pneumococcal Polysaccharide, PPSV23 (PNEUMOVAX) Unknown Completed [facility] Influenza Virus Vaccine Quad .5 mL IM 6+ MO (FLUZONE/FLULAVAL/F LUARIX) Unknown Completed [facility] TDAP Unknown Completed [facility] SARS-COV-2 COVID-19 MODERNA 12+ YRS VACCINE Unknown Completed [facility] SARS-COV-2 COVID-19 MODERNA 12+ YRS VACCINE Unknown Completed [facility] Influenza Virus Vaccine Quad IM, Preserv and ABX Free 6 MO-64 YRS (FLUCELVAX) Unknown Completed [facility] Pneumococcal Polysaccharide, PPSV23 (PNEUMOVAX) Unknown Completed [facility] Influenza Virus Vaccine Quad .5 mL IM 6+ MO (FLUZONE/FLULAVAL/F LUARIX) Unknown Completed [facility] TDAP Unknown Completed [facility] SARS-COV-2 COVID-19 MODERNA 12+ YRS VACCINE Unknown Completed [facility] SARS-COV-2 COVID-19 MODERNA 12+ YRS VACCINE Unknown Completed [facility] Influenza Virus Vaccine Quad .5 mL IM 6+ MO (FLUZONE/FLULAVAL/F LUARIX) Unknown Completed [facility] TDAP Unknown Completed [facility] SARS-COV-2 COVID-19 MODERNA 12+ YRS VACCINE Unknown Completed [facility] SARS-COV-2 COVID-19 MODERNA 12+ YRS VACCINE Unknown Completed [facility] Influenza Virus Vaccine Quad .5 mL IM 6+ MO (FLUZONE/FLULAVAL/F LUARIX) Unknown Completed [facility] TDAP Unknown Completed [facility] SARS-COV-2 COVID-19 MODERNA 12+ YRS VACCINE Unknown Completed [facility] Influenza Virus Vaccine Quad .5 mL IM 6+ MO (FLUZONE/FLULAVAL/F LUARIX) Unknown Completed [facility] TDAP Unknown Completed [facility] Procedures Procedure Date / Time Performed Performing Clinician Source INSURANCE CORRESPONDENCE 2021-02-20 05:01:00 Doc tor Unassigned, [place] [facility] Encounters Start Date/Time End Date/Time Encounter Type Admission Type Attending [facility] Facility Care Department Encounter ID Source 2021-03-03 02:49:15 [id number] 2021-03-02 19:47:42 Outpatient CLINTON CRUZ [facility] [id number] [facility] 2023-01-31 00:00:00 2023-01-31 00:00:00 Outpatient GC_GCBZW_Ka diyala_S PRIV PRIV [id number] [facility] 2022-12-21 00:00:00 2022-12-21 00:00:00 Outpatient GC_GCBZW_Ka diyala_S PRIV PRIV [id number] [facility] 2022-12-14 08:53:29 2022-12-14 08:53:29 Outpatient [facility] [id number] Jozef Fisher 2022-12-01 10:37:28 2022-12-01 10:37:28 Outpatient [facility] [id number] Jozef Putnam Phillip 2022-11-30 10:45:07 2022-11-30 10:45:07 Outpatient [facility] [id number] Jozef Putnam Phillip 2022-10-22 15:19:49 2022-10-22 15:19:49 Outpatient [facility] [id number] Jozef Putnam Phillip 2022-10-20 16:19:31 2022-10-20 16:19:31 Outpatient [facility] [id number] Jozef Fisher 2022-10-19 08:10:32 2022-10-19 08:10:32 Outpatient [facility] [id number] Jozef Fisher 2022-10-15 14:54:44 2022-10-15 14:54:44 Outpatient [facility] [id number] Jozef Fisher 2022-10-12 13:50:12 2022-10-12 13:50:12 Outpatient [facility] [id number] Jozef Fisher 2021-04-24 14:00:00 2021-04-24 14:00:00 Outpatient [facility] [id number] [facility] 2021-04-24 14:00:00 2021-04-24 14:00:00 Outpatient [facility] [id number] [facility] 2021-03-11 00:00:00 2021-03-11 00:00:00 Telephone Brittany Davis [facility] [id number] [facility] 2021-02-27 14:12:13 2021-02-27 14:27:13 Office Visit Ana [facility] [id number] [id number] [facility] 2021-02-27 14:15:00 2021-02-27 14:15:00 Outpatient [facility] [id number] [facility] 2021-02-27 14:15:00 2021-02-27 14:15:00 Outpatient [facility] [id number] [facility] 2021-02-24 00:00:00 2021-02-24 00:00:00 Patient Secure Msg [place]ittany rudolph [facility] [id number] [facility] 2021-02-20 00:00:00 2021-02-20 00:00:00 Orders Only Doctor Unassigned, [place] [facility] [id number] [facility] 2021-02-19 00:00:00 2021-02-19 00:00:00 Case Management [place]ultonJimbo rudolphskye Kasi [facility] [id number] [id number] [facility] 2021-02-17 00:00:00 2021-02-17 00:00:00 Patient Secure Msg Doctor Unassigned, [place] [facility] [id number] [id number] [facility] 2021-02-14 08:40:58 2021-02-14 08:55:58 Road Consultant Visit Lab, Ang - Corky Davis Jimboskye Kasi [facility] [id number] [id number] [facility] 2021-02-14 08:45:00 2021-02-14 08:45:00 Outpatient R BRITTANY DAVIS [facility] [id number] [facility] 2021-02-13 15:13:14 2021-02-13 16:15:08 Office Visit Brittany Davis Kasi [facility] Wes?[facility] 1.114 [id number] [id number] [facility] 2021-02-13 15:15:00 2021-02-13 15:15:00 Outpatient [facility] [id number] [facility] 2021-02-03 00:00:00 2021-02-03 00:00:00 Refill Brittany [facility] 1.114 [id number] [id number] [facility] 2020-10-25 13:15:00 2020-10-25 13:15:00 Outpatient R IVAN GIL [facility] [id number] [facility] 2020-10-24 13:00:00 2020-10-24 13:00:00 Outpatient R JERRICA GARCIA [facility] [id number] [facility] 2020-10-06 00:00:00 2020-10-06 00:00:00 Orders Only Doctor Unassigned, [place] [facility] 1..114 350.1.13.10 [id number] [id number] [facility] 2020-09-25 09:54:52 2020-09-25 10:09:52 Road Consultant Visit 2, Ad[facility] Building 1..114 350.1.13.10 4.2.7.2.686 [id number] [facility] 2020-09-25 08:41:57 2020-09-25 09:42:43 Office Visit Marino, [facility] Building 1..114 350.1.13.10 4.2.7.2.686 [id number] [facility] 2020-09-25 08:30:00 2020-09-25 08:30:00 Outpatient R MARINOENRICOMICHELLE [facility] [id number] [facility] 2020-09-23 00:00:00 2020-09-23 00:00:00 Telephone Zac Moon [facility] 1.2840.114 350.1.13.10 4.2.7.2.686 [id number] [facility] 2020-09-21 00:00:00 2020-09-21 00:00:00 Patient Secure Msg Doctor Unassigned, [place] [facility] 1.2840.114 350.1.13.10 4.2.7.2.686 [id number] [facility] 2020-09-19 12:56:47 2020-09-19 14:04:29 Office Visit Jerrica Garcia [facility] 1.2840.114 350.1.13.10 4.2.7.2.686 [id number] [facility] 2020-09-19 13:00:00 2020-09-19 13:00:00 Outpatient R JERRICA GARCIA [facility] [id number] [facility] 2020-09-18 00:00:00 2020-09-18 00:00:00 Patient Secure Msg Doctor Unassigned, [place] [facility] 1.2840.114 350.1.13.10 4.2.7.2.686 [id number] [facility] 2020-09-17 00:00:00 2020-09-17 00:00:00 Orders Only Doctor Unassigned, [place] [facility] 1.2840.114 350.1.13.10 4.2.7.2.686 [id number] [facility] 2020-09-09 00:00:00 2020-09-09 00:00:00 Orders Only Doctor Unassigned, [place] [facility] 1.2.840.114 350.1.13.10 4.2.7.2.686 [id number] [facility] 2020-09-05 15:58:58 2020-09-05 16:28:58 Office Visit Zac Moon [facility] 1.2840.114 350.1.13.10 4.2.7.2.686 [id number] [facility] 2020-09-05 16:00:00 2020-09-05 16:00:00 Outpatient R ZAC MOON [facility] [id number] [facility] 2020-09-05 00:00:00 2020-09-05 00:00:00 Orders Only Doctor Unassigned, [place] [facility] 1.2840.114 350.1.13.10 4.2.7.2.686 [id number] [facility] 2020-08-29 11:00:00 2020-08-29 23:59:00 Hospital Encounter Jerrica Garcia [facility] 1.2.840.114 350.1.13.10 4.2.7.2.686 [id number] [facility] 2020-08-29 14:07:23 2020-08-29 15:01:21 [facility] 1.2.840.114 350.1.13.10 4.2.7.2.686 [id number] [facility] 2020-08-29 00:00:00 2020-08-29 00:00:00 Outpatient R JERRICA GARCIA [facility] [id number] [facility] 2020-08-29 00:00:00 2020-08-29 00:00:00 Orders Only Doctor Unassigned, [place] [facility] 1..114 350.1.13.10 4.2.7.2.686 [id number] [facility] 2020-08-23 09:30:00 2020-08-23 10:00:00 Office Visit Jerrica Garcia [facility] Building 1..114 350.1.13.10 4.2.7.2.686 [id number] [facility] 2020-08-23 09:30:00 2020-08-23 09:30:00 Outpatient R JERRICA GARCIA [facility] [id number] [facility] 2020-08-22 00:00:00 2020-08-22 00:00:00 Outpatient R JERRICA GARCIA [facility] [id number] [facility] 2020-08-22 00:00:00 2020-08-22 00:00:00 Case Management WesleyJibmoskye Kasi [facility] Office Building One 1.84.114 350.1.13.10 4.2.7.2.686 [id number] [facility] 2020-08-20 08:05:40 2020-08-20 23:59:00 Outpatient R WESLEY J[facility]BOSKYE [facility] [id number] [facility] 2020-08-20 08:05:40 2020-08-20 23:59:00 Hospital Encounter FultonJimbo rudolphlouisecuate Ramachandran [facility] 1.84.114 350.1.13.10 4.2.7.2.686 [id number] [facility] 2020-08-20 08:00:00 2020-08-20 08:04:00 Hospital Encounter WesleyJimbolouisecuate Ramachandran [facility] 1.840.114 350.1.13.10 4.2.7.2.686 [id number] [facility] 2020-08-20 00:00:00 2020-08-20 00:00:00 Outpatient BRITTANY MO [facility] [id number] [facility] 2020-08-16 15:04:19 2020-08-16 16:58:13 Office Visit Jerrica Garcia [facility] nal Building 1.114 350.1.13.10 4.2.7.2.686 [id number] [facility] 2020-08-16 15:00:00 2020-08-16 15:00:00 Outpatient JERRICA QUIROZ [facility] [id number] [facility] 2020-08-07 00:00:00 2020-08-07 00:00:00 Letter (Out) Clinic, [facility] CLINICS .114 350.1.13.10 4.2.7.2.686 [id number] [facility] 2020-08-05 12:20:00 2020-08-05 12:20:00 Outpatient KAYLEE ALVARADO [facility] [id number] [facility] 2020-08-04 15:45:00 2020-08-04 15:45:00 Outpatient [facility] [id number] [facility] 2020-08-03 00:00:00 2020-08-03 00:00:00 Case Management WesleyJimbolouisecuate Kasi [facility] Office Building One .114 350.1.13.10 4.2.7.2.686 [id number] [facility] 2020-08-01 00:00:00 2020-08-01 00:00:00 Patient Secure Msg Doctor Unassigned, [place] [facility] 1.114 350.1.13.10 4.2.7.2.686 [id number] [facility] 2020-07-27 00:00:00 2020-07-27 00:00:00 Case Management [facility] Building One 1.840.114 350.1.13.10 4.2.7.2.686 [id number] [facility] 2020-07-26 10:00:00 2020-07-26 10:00:00 Outpatient R JENNA BARAJASTHIA [facility] [id number] [facility] 2020-07-26 09:03:13 2020-07-26 09:23:13 Urgent Care Provider, [facility] 1.84.114 350.1.13.10 4.2.7.2.686 [id number] [facility] 2020-07-26 00:00:00 2020-07-26 00:00:00 [facility] (Out[facility] One 1.84.114 350.1.13.10 4.2.7.2.686 [id number] [facility] 2020-07-18 15:40:00 2020-07-18 23:59:00 Hospital Encounter Brittany Davis [facility] 1.840.114 350.1.13.10 4.2.7.2.686 [id number] [facility] 2020-07-18 00:00:00 2020-07-18 00:00:00 Outpatient R JIMBO DAVISLOUISECUATE [facility] [id number] [facility] 2020-07-07 14:55:00 2020-07-07 14:55:00 Outpatient KAYLEE VIDALES [facility] [id number] [facility] 2020-07-03 13:21:07 2020-07-03 13:36:07 Road Consultant Visit Pob, Adc Lab Main Brittany Davis [facility] Building 1.114 350.1.13.10 4.2.7.2.686 [id number] [facility] 2020-07-03 13:30:00 2020-07-03 13:30:00 Outpatient R BRITTANY DAVIS [facility] [id number] [facility] 2020-07-02 08:30:51 2020-07-02 09:43:25 Road Consultant Visit Lab, Adc Fam Pob I [facility]any [facility] Office Building One 1.114 350.1.13.10 4.2.7.2.686 [id number] [facility] 2020-07-02 08:46:45 2020-07-02 09:01:45 Road Consultant Visit Pob, Adc Lab Main Brittany Davis [facility] Building 1.114 350.1.13.10 4.2.7.2.686 [id number] [facility] 2020-07-02 08:20:00 2020-07-02 08:20:00 Outpatient R BRITTANY DAVIS [facility] [id number] [facility] 2020-07-02 00:00:00 2020-07-02 00:00:00 Orders Only Doctor Unassigned, [place] [facility] .114 350.1.13.10 4.2.7.2.686 [id number] [facility] 2020-07-01 15:35:30 2020-07-01 17:37:41 Office Visit Brittany Davis [facility] Office Building One .114 350.1.13.10 4.2.7.2.686 [id number] [facility] 2020-07-01 15:30:00 2020-07-01 15:30:00 Outpatient R BRITTANY DAVIS [facility] [id number] [facility] 2020-05-06 15:41:00 2020-05-06 16:01:00 Road Consultant Visit Lab, [facility] Pob Luciana Prado [facility] Office Building One .114 350.1.13.10 4.2.7.2.686 [id number] [facility] 2020-05-06 15:04:32 2020-05-06 15:19:32 Office Visit Francisco Javier Gonzalez [facility] Office Building One 114 350.1.13.10 4.2.7.2.686 [id number] [facility] 2020-05-06 15:00:00 2020-05-06 15:00:00 Outpatient R FRANCISCO JAVIER GONZALEZ [facility] [id number] [facility] 2020-04-09 00:00:00 2020-04-09 00:00:00 Patient Secure Msg Doctor Unassigned, [place] [facility] .114 350.1.13.10 4.2.7.2.686 [id number] [facility] 2020-04-01 15:32:21 2020-04-01 15:50:15 Road Consultant Visit Lab, [facility] Domingob [facility] Office Building One .114 350.1.13.10 4.2.7.2.686 [id number] [facility] 2020-04-01 14:36:51 2020-04-01 15:32:47 Office Visit Britt[facility] Office Building One 1.840.114 350.1.13.10 4.2.7.2.686 [id number] [facility] 2020-04-01 14:30:00 2020-04-01 14:30:00 Outpatient BRITTANY MO [facility] [id number] [facility] 2020-04-01 00:00:00 2020-04-01 00:00:00 Orders Only Doctor Unassigned, [place] [facility] 1.840.114 350.1.13.10 4.2.7.2.686 [id number] [facility] 2020-04-01 00:00:00 2020-04-01 00:00:00 Letter (Out) Doctor Unassigned, [place] [facility] 1.840.114 350.1.13.10 4.2.7.2.686 [id number] [facility]
[2023-07-14 16:48] LABS: Absolute Basophils 0.1 K/uL (0-0.5); Absolute Eosinophils 0.1 K/uL (0-0.5); Absolute Lymphocytes (CBC) 2.8 K/uL (0.7-4.9); Absolute Monocytes 0.5 K/uL (0.1-1.3); Absolute Neutrophil 4.4 K/uL (1.8-8.0); Basophils % 1.3 % (0-1.3); Eosinophils % 1.2 % (0-4.4); Hematocrit 33.9 % (36.0-45.0); Hemoglobin 11.2 g/dL (12.0-15.0); Lymphocytes % 35.8 % (15.3-44.8); MCH 25.8 pg (27.0-35.0); MCV 78.4 fL (80-100); MPV 8.4 fL (7.6-11.3); Monocytes % 6.8 % (3.3-12.3); Neutrophils % 54.9 % (41.7-73.7); Platelets 394 thou/uL (152-406); RBC Red Blood Cell Count 4.33 M/uL (3.86-4.86); Red Cell Distribution Width 15.9 % (12.1-15.2)
[2023-07-14 16:49] LABS: PT Prothrombin Time 10.8 SECONDS (9.5-12.5); Protime INR 0.98
[2023-07-14 17:17] LABS: ALT/SGPT 28 U/L (13-56); AST/SGOT 16 U/L (15-37); Albumin 3.2 g/dL (3.4-5.0); Albumin/Globulin Ratio 0.8 (1.1-1.8); Alkaline Phosphatase 128 U/L (45-117); Anion Gap 8.7 mEq/L (5.0-15.0); BUN Blood Urea Nitrogen 13 mg/dL (7-18); Bicarbonate 25 mEq/L (21-32); Bilirubin Total 0.2 mg/dL (0.2-1.0); Globulin 4.2 g/dL (2.3-3.5); Glomerular Filtration Rate 58 ml/min (=/>90); Glucose Level 276 mg/dL (74-106); Magnesium 1.3 mg/dL (1.6-2.4); Potassium 3.7 mEq/L (3.5-5.1); Protein, Total 7.4 g/dL (6.4-8.2); Sodium Level 136 mEq/L (136-145); Troponin High Sensitivity 3.2 pg/mL (<58.9)
[2023-07-14 17:32] LABS: Bilirubin Direct < 0.1 mg/dL (0-0.2); Bilirubin Indirect, Calculated ND mg/dL (0.2-0.8)
--- NOTE | 2023-07-14 17:52 | RAD REPORT ---
EXAM DESCRIPTION: CT - Head Brain Wo Cont - 07/14/2023 5:00 pm CLINICAL HISTORY: DIZZINESS COMPARISON: Head Brain Wo Cont dated 02/27/2018 TECHNIQUE: Noncontrast head CT images were obtained without IV contrast. Multiplanar reformats were generated and reviewed. All CT scans are performed using dose optimization technique as appropriate and may include automated exposure control or mA/KV adjustment according to patient size. FINDINGS: No intracranial hemorrhage, mass, or edema. Midline structures are unremarkable. Normal ventricular caliber for age. Toribio-white matter differentiation is preserved, without evidence of acute infarct. No abnormal extra- axial fluid collections. Mastoid air cells and visualized portions of the paranasal sinuses are clear. No acute bony findings. IMPRESSION: No evidence of an acute intracranial process.
--- NOTE | 2023-07-14 18:25 | RAD REPORT ---
EXAM DESCRIPTION: [place] Single View07/14/2023 5:40 pm CLINICAL HISTORY: dizziness COMPARISON: Chest Single View dated 02/27/2018; Chest Pa And Lat (2 Views) dated 12/16/2017; ABDOMEN ACUTE SERIES dated 12/06/2014; CHEST PA AND LAT 2 VIEW dated 10/30/2014 TECHNIQUE: Portable AP view of the chest. FINDINGS: Mild central interstitial prominence. Small left basilar focal medial airspace opacity. N o pneumothorax or effusion. The cardiomediastinal contours are unremarkable. IMPRESSION: Findings suggesting mild pulmonary edema with small left basilar opacity favoring atelec tasis.
--- NOTE | 2023-07-14 20:39 | RAD REPORT ---
EXAM DESCRIPTION: CT - Head angio - 07/14/2023 8:05 pm CLINICAL HISTORY: DIZZINESS COMPARISON: Head Brain Wo Cont dated 07/14/2023; Head Brain Wo Cont dated 02/27/2018 TECHNIQUE: Axial CT angiography images of the head was performed with multiplanar and maximum intens ity projection reconstructions. Images performed following intravenous administration of iodinated co ntrast. All CT scans are performed using dose optimization technique as appropriate and may include automated exposure control or mA/KV adjustment according to patient size. FINDINGS: No evidence of large vessel occlusion. No evidence of aneurysm or dissection flap is detec lucian. No flow-limiting stenosis or vascular malformation identified. Antegrade flow is seen in the vertebral arteries. The vertebral arteries are codominant. The visualized dural venous sinuses are grossly patent. IMPRESSION: No evidence of large vessel occlusion or flow-limiting stenosis.
--- NOTE | 2023-07-14 20:41 | RAD REPORT ---
EXAM DESCRIPTION: CT - Neck Angio - 07/14/2023 8:05 pm CLINICAL HISTORY: dizziness COMPARISON: No comparisons TECHNIQUE: Axial CT angiography images of the neck was performed with multiplanar and maximum intens ity projection reconstructions. Images performed following intravenous administration of iodinated co ntrast. All CT scans are performed using dose optimization technique as appropriate and may include automated exposure control or mA/KV adjustment according to patient size. Quantification of carotid stenosis, if any, is performed according to NASCET criteria. FINDINGS: A left aortic arch is identified with normal three vessel configuration of the great vesse ls. No significant flow abnormality is seen of the common carotid bilaterally. No significant stenosis is identified involving the cervical segments of both internal carotid arteri es. Normal flow is seen within both vertebral arteries. IMPRESSION: No significant flow abnormality of the neck vessels is identified. CAROTID STENOSIS REFERENCE USING NASCET CRITERIA: % ICA stenosis = (1 - narrowest ICA diameter/diameter of distal cervical ICA) x 100. Mild - <50% stenosis. Moderate - 50-69% stenosis. Severe - 70-94% stenosis. Near occlusion - 95-99% stenosis. Occluded - 100% stenosis.
--- NOTE | 2023-07-14 21:12 | ER ---
Nurse's Notes [facility] Name: Kourtney Leblanc Age: 48 yrs Sex: Female : 1975 Arrival Date: 07/14/2023 Time: 16:08 Bed DX2 Private MD: Diagnosis: Dizziness and giddiness;Hypomagnesemia;Diabetes mellitus due to underlying condition with hyperglycemia Presentation: 07/13 16:19 Coronavirus screen: Vaccine status: Patient reports receiving the 2nd dose of the covid ll1 vaccine. Client denies travel out of the [place] in the last 14 days. At this time, the client does not indicate any symptoms associated with coronavirus-19. Ebola Screen: Patient denies travel to an Ebola-affected area in the 21 days before illness onset. Initial Sepsis Screen: Does the patient meet any 2 criteria? No. Patient's initial sepsis screen is negative. Does the patient have a suspected source of infection? No. Patient's initial sepsis screen is negative. Risk Assessment: Do you want to hurt yourself or someone else? Patient reports no desire to harm self or others. Onset of symptoms was July 12, 2023. 16:19 Method Of Arrival: Ambulatory 1 16:19 Acuity: RANDY 3 ll1 16:21 Chief complaint: Patient states: Dizziness since Wednesday. No N/V or fevers. ll1 Triage Assessment: 16:21 General: Appears in no apparent distress. Behavior is calm, cooperative, appropriate ll1 for age. Pain: Denies pain. Neuro: Reports dizziness. Historical: - Allergies: 16:18 No Known Drug Allergies; ll1 - PMHx: 16:18 Diabetes - NIDDM; Depression; ll1 - PSHx: 16:18 section; Cholecystectomy; fibroids and cyst removal; ll1 - Immunization history:: Adult Immunizations up to date. - Social history:: Smoking status: Patient denies any tobacco usage or history of. Screenin:39 [facility] ED Fall Risk Assessment (Adult) History of falling in the last 3 months, jb4 including since admission No falls in past 3 months (0 pts) Confusion or Disorientation No (0 pts) Intoxicated or Sedated No (0 pts) Impaired Gait No (0 pts) Mobility Assist Device Used No (0 pt) Altered Elimination No (0 pt) Score/Fall Risk Level 0 - 2 = Low Risk Oriented to surroundings, Maintained a safe environment. Abuse screen: Denies threats or abuse. Nutritional screening: No deficits noted. Tuberculosis screening: No symptoms or risk factors identified. Assessment: 20:00 General: Appears in no apparent distress. uncomfortable, Behavior is calm, cooperative, jb4 appropriate for age. Pain: Denies pain. Neuro: Level of Consciousness is awake, alert, obeys commands, Oriented to person, place, time, situation, Reports dizziness. Cardiovascular: Patient's skin is warm and dry. Respiratory: Airway is patent Respiratory effort is even, unlabored, Respiratory pattern is regular, symmetrical. GI: : No signs and/or symptoms were reported regarding the genitourinary system. EENT: No signs and/or symptoms were reported regarding the EENT system. Derm: Skin is intact, Skin is dry, Skin is normal, Skin temperature is warm. 21:39 Reassessment: Patient appears in no apparent distress at this time. Patient and/or jb4 family updated on plan of care and expected duration. Pain level reassessed. Patient is alert, oriented x 3, equal unlabored respirations, skin warm/dry/pink. Patient states feeling better. Vital Signs: 16:19 BP 154 / 89; Pulse 79; Resp 17; Temp 97.4; Pulse Ox 100% ; Weight 94.35 kg; Height 5 ll1 ft. 3 in. ; Pain 5/10; 21:32 BP 143 / 78; Pulse 65; Resp 17; Temp 96.4; Pulse Ox 100% on R/A; Weight 94.35 kg; ty Height 5 ft. 3 in. ; Pain 0/10; 21:32 Body Mass Index 36.85 (94.35 kg, 160.02 cm) ty 16:19 Pain Scale: Adult ll1 21:32 Pain Scale: Adult ty ED Course: 16:12 Patient arrived in ED. ae5 16:13 Byron Higuera PA is PHCP. cp 16:13 Gregory Pinedo MD is Attending Physician. cp 16:20 Triage completed. ll1 16:20 Arm band placed on. ll1 16:39 Initial lab(s) drawn, by me, sent to lab. Inserted saline lock: 22 gauge in left ap3 antecubital area, using aseptic technique. Blood collected. 17:02 CT Head Brain wo Cont In Process Unspecified. EDMS 17:42 XRAY Chest (1 view) In Process Unspecified. EDMS 20:[address] via wheelchair. jb4 20:07 CT Head Angio In Process Unspecified. EDMS 20:07 CT Neck Angio In Process Unspecified. EDMS 20:11 Patient moved back from CT. jb4 21:32 IV discontinued, intact, bleeding controlled, No redness/swelling at site. Pressure ty dressing applied. 21:39 Patient has correct armband on for positive identification. Bed in low position. Call jb4 light in reach. Side rails up X 1. Provided Education on: Educated on prescriptions . 21:39 No provider procedures requiring assistance completed. jb4 Administered Medications: 16:43 Drug: Meclizine PO 25 mg PO once Route: PO; ap3 19:55 Drug: Magnesium Sulfate IVPB 1 grams IVPB once over 1 hrs Route: IVPB; Infused Over: 1 jb4 hrs; Site: left antecubital; 19:55 Drug: NS 0.9% IV 500 ml IV at bolus once Route: IV; Rate: bolus; Site: left antecubital;jb4 Medication: 21:39 VIS not applicable for this client. jb4 Outcome: 21:11 Discharge ordered by MD. cp 21:39 Discharged to home ambulatory, with family, jb4 21:39 Condition: stable 21:39 Discharge instructions given to patient, Instructed on discharge instructions, follow up and referral plans. medication usage, Demonstrated understanding of instructions, follow-up care, medications, Prescriptions given X 2, 21:42 Patient left the ED. jb4 Signatures: Dispatcher [employer] EDCT Byron Higuera PA PA cp Bryson, James, RN RN jb4 Lizbet Dixon RN RN ap3 Gurvinder Red RN RN [email or web address] Nany Peck aeLisandro Jeronimo ty
--- NOTE | 2023-07-14 21:12 | EDPHYS ---
Physician Documentation [facility] Name: Kourtney Leblanc Age: 48 yrs Sex: Female : 1975 Arrival Date: 07/14/2023 Time: 16:08 Bed DX2 Private MD: ED Physician Gregory Pinedo HPI: 07/13 16:30 This 48 yrs old Black Female presents to ER via Ambulatory with complaints of Dizziness.cp 16:30 The patient presents with dizziness, lightheadedness, feeling off balance. Onset: The cp symptoms/episode began/occurred 3 day(s) ago. 16:30 Associated signs and symptoms: Pertinent positives: general weakness, Pertinent cp negatives: abdominal pain, chest pain, diaphoresis, focal weakness, shortness of breath, syncope. 16:30 Severity of symptoms: in the emergency department the symptoms are unchanged despite cp home interventions. Patient's baseline: Neuro: alert and fully oriented, Motor: no deficits, Ambulation: walks without assistance, Speech: normal. The patient has experienced similar episodes in the past, a few times, symptoms lasting longer than previous episodes. Historical: - Allergies: 16:18 No Known Drug Allergies; ll1 - PMHx: 16:18 Diabetes - NIDDM; Depression; ll1 - PSHx: 16:18 section; Cholecystectomy; fibroids and cyst removal; ll1 - Immunization history:: Adult Immunizations up to date. - Social history:: Smoking status: Patient denies any tobacco usage or history of. ROS: 16:35 Constitutional: Negative for body aches, chills, fever, poor PO intake, cp 16:35 Eyes: Negative for injury, pain, redness, and discharge, cp 16:35 ENT: Negative for drainage from ear(s), ear pain, sore throat, difficulty swallowing, difficulty handling secretions, 16:35 Cardiovascular: Negative for chest pain, edema, palpitations, 16:35 Respiratory: Negative for cough, shortness of breath, wheezing, 16:35 Abdomen/GI: Negative for abdominal pain, vomiting, diarrhea, constipation, 16:35 : Negative for urinary symptoms, 16:35 Neuro: Positive for dizziness, weakness, Negative for altered mental status, headache, loss of consciousness, syncope, 16:35 All other systems are negative, Exam: 16:40 Constitutional: The patient appears in no acute distress, alert, awake, cp non-diaphoretic, non-toxic, well developed, well nourished, 16:40 Head/Face: Normocephalic, atraumatic. cp 16:40 Eyes: Periorbital structures: appear normal, Pupils: equal, round, and reactive to light and accomodation, Extraocular movements: intact throughout, Conjunctiva: normal, no exudate, no injection, Sclera: no appreciated abnormality, Lids and lashes: appear normal, bilaterally, 16:40 ENT: External ear(s): are unremarkable, Nose: is normal, Mouth: Lips: moist, Oral mucosa: pink and intact, moist, Posterior pharynx: is normal, airway is patent, no erythema, no exudate, 16:40 Neck: ROM/movement: is normal, is supple, without pain, no range of motions limitations, 16:40 Chest/axilla: Inspection: normal, 16:40 Cardiovascular: Rate: normal, Rhythm: regular, Edema: is not appreciated, JVD: is not appreciated, 16:40 Respiratory: the patient does not display signs of respiratory distress, Respirations: normal, no use of accessory muscles, no retractions, labored breathing, is not present, Breath sounds: are clear throughout, no decreased breath sounds, no stridor, no wheezing, 16:40 Abdomen/GI: Inspection: abdomen appears normal, Palpation: abdomen is soft and non-tender, in all quadrants, 16:40 Back: pain, is absent, ROM is normal, 16:40 Neuro: Orientation: to person, place \T\ time. Mentation: is normal, Cerebellar function: Romberg testing is negative, Motor: moves all fours, strength is normal, Sensation: is normal, Gait: is steady, at a normal pace, without difficulty, Vital Signs: 16:19 BP 154 / 89; Pulse 79; Resp 17; Temp 97.4; Pulse Ox 100% ; Weight 94.35 kg; Height 5 ll1 ft. 3 in. ; Pain 5/10; 21:32 BP 143 / 78; Pulse 65; Resp 17; Temp 96.4; Pulse Ox 100% on R/A; Weight 94.35 kg; ty Height 5 ft. 3 in. ; Pain 0/10; 21:32 Body Mass Index 36.85 (94.35 kg, 160.02 cm) ty 16:19 Pain Scale: Adult ll1 21:32 Pain Scale: Adult ty MDM: 16:13 Patient medically screened. 21:10 Data reviewed: vital signs, nurses notes, lab test result(s), EKG, radiologic studies, cp CT scan, plain films. 21:10 Differential diagnosis: cardiac arrhythmia, CVA, generalized weakness, GI bleed, cp hypovolemia, idiopathic dizziness, , sepsis, TIA. I considered the following discharge prescriptions or medication management in the emergency department Medications were administered in the Emergency Department. See MAR. Independent interpretation of the following test(s) in the Emergency Department EKG: See my EKG interpretation above. Care significantly affected by the following chronic conditions: Diabetes. Counseling: I had a detailed discussion with the patient and/or guardian regarding the historical points, exam findings, and any diagnostic results supporting the discharge/admit diagnosis, lab results, radiology results, to return to the emergency department if symptoms worsen or persist or if there are any questions or concerns that arise at home. Response to treatment: the patient's symptoms have markedly improved after treatment, and as a result, I will discharge patient. 07/13 16:19 Order name: Basic Metabolic Panel; Complete Time: 19:04 07/13 19:04 Interpretation: Normal except: GLUC 276; CRE 1.15; GFR 58. 07/13 16:19 Order name: CBC with Diff; Complete Time: 19:04 07/13 19:04 Interpretation: Normal except: HGB 11.2; HCT 33.9; MCV 78.4; MCH 25.8; RDW 15.9. 07/13 16:19 Order name: LFT's; Complete Time: 19:04 07/13 16:19 Order name: Magnesium; Complete Time: 19:04 07/13 19:05 Interpretation: Abnormal: MG 1.3. 07/13 16:19 Order name: PT-INR; Complete Time: 19:04 07/13 16:19 Order name: Troponin HS; Complete Time: 19:04 07/13 16:19 Order name: XRAY Chest (1 view); Complete Time: 19:04 07/13 16:23 Order name: CT Head Brain wo Cont; Complete Time: 19:04 07/13 20:30 Interpretation: Report reviewed. cp 07/13 19:06 Order name: CT Head Angio; Complete Time: 20:53 cp 07/13 20:53 Interpretation: Report reviewed. cp 07/13 19:06 Order name: CT Neck Angio; Complete Time: 20:53 cp 07/13 20:53 Interpretation: Report reviewed. cp 07/13 16:19 Order name: EKG; Complete Time: 16:20 cp 07/13 16:19 Order name: EKG - Nurse/Tech; Complete Time: 21:00 cp 07/13 16:19 Order name: IV Saline Lock; Complete Time: 16:39 cp 07/13 16:19 Order name: Labs collected and sent; Complete Time: 16:39 cp Administered Medications: 16:43 Drug: Meclizine PO 25 mg PO once Route: PO; ap3 19:55 Drug: Magnesium Sulfate IVPB 1 grams IVPB once over 1 hrs Route: IVPB; Infused Over: 1 jb4 hrs; Site: left antecubital; 19:55 Drug: NS 0.9% IV 500 ml IV at bolus once Route: IV; Rate: bolus; Site: left antecubital;jb4 Disposition Summary: 07/14/23 21:11 Discharge Ordered Notes: Location: Home cp Problem: new cp Symptoms: have improved cp Condition: Stable cp Diagnosis - Dizziness and giddiness cp - Hypomagnesemia cp - Diabetes mellitus due to underlying condition with hyperglycemia cp Followup: cp - With: Private Physician - When: 2 - 3 days - Reason: Recheck today's complaints Discharge Instructions: - Discharge Summary Sheet cp - Dizziness cp - Hyperglycemia cp - Hypomagnesemia cp - Blood Glucose Monitoring, Adult cp - Diabetes Mellitus and Nutrition, Adult cp - Aspirin and Your Heart cp Forms: - Medication Reconciliation Form cp - Thank You Letter cp - Antibiotic Education cp - Prescription Opioid Use cp - Patient Portal Instructions cp - Leadership Thank You Letter cp Prescriptions: - Meclizine 25 mg Oral Tablet - take 1 tablet ORAL route every 8 hours As needed; 30 tablet; Refills: 0, cp Product Selection Permitted - Zofran 4 mg Oral Tablet - take 1 tablet ORAL route every 12 hours As needed; 20 tablet; Refills: 0, cp Product Selection Permitted Signatures: Dispatcher [employer] EDID Byron Higuera PA PA cp Kin Slater RN RN [id number] Lizbet Dixon RN RN ap3 Teofilo, Lynsay, RN RN ll1
[2023-07-14 22:40] VITALS: BP 143/78; TEMP 96.4; O2SAT 100
== END ==
LOC: ER 16:08
DX: E83.42 Hypomagnesemia (principal); E11.65 Type 2 diabetes mellitus with hyperglycemia
CPT/HCPCS: 36415; 70450; 70496; 70498; 71045; 80048; 80076; 83735; 84484; 85025; 85610; 93005; J3475; J7040; J8597; Q9967